=== PATIENT | female | born 1950 | race Caucasian/White ===

== ENCOUNTER → 2024-12-29 | Outpatient (CLI) | payer MEDICARE, OTHER ==
[~2024-12-29] MED LIST: IOHEXOL 300 MG/ML 100 ML VIAL IV ONE; IOHEXOL 300 MG/ML 100 ML VIAL ONE
== END | disposition home or self-care (01) ==
LOC: CT 10:48
PROVIDERS: ATTEND Physician Assistant
DX: C06.0 Malignant neoplasm of cheek mucosa (principal); J43.9 Emphysema, unspecified; M85.88 Other specified disorders of bone density and structure, other site